=== PATIENT | female | born 1985 | race Caucasian/White ===

== ENCOUNTER 2017-02-25 18:58 | Emergency (ER) | payer MEDICAID ==
[~2017-02-25] VITALS: Ht 147.3 cm; Wt 56.7 kg
[2017-02-25 19:00] VITALS: BP_SYST 155
[2017-02-25] MEDS ORDERED: NACL 0.9% 1,000 ML IV ONE (19:33)
[2017-02-25 19:56] LABS: BASOPHILS % (AUTO) 0.4 % (0.0-2.0); EOSINOPHILS # (AUTO) 0.2 K/uL (0.0-0.4); EOSINOPHILS % (AUTO) 3.3 % (0.0-4.0); LYMPHOCYTES # (AUTO) 1.8 K/uL (1.0-5.5); LYMPHOCYTES % (AUTO) 37.1 % (20.5-51.5); MEAN CORPUSCULAR HEMOGLOBIN 28 pg (27-31); MEAN CORPUSCULAR HGB CONC 33 % (32-36); MEAN CORPUSCULAR VOLUME 84 fL (79.0-98.0); MONOCYTES # (AUTO) 0.4 K/uL (0.0-1.0); MONOCYTES % (AUTO) 7.9 % (1.7-9.3); NEUTROPHILS # (AUTO) 2.5 K/uL (1.8-7.7); NEUTROPHILS % (AUTO) 51.3 % (40.0-70.0); PLATELET COUNT (AUTO) 223 K/uL (130-430); RED BLOOD CELL COUNT(AUTO) 4.27 MIL/uL (4.2-6.2); RED CELL DISTRIBUTION WIDTH 12.3 % (9.0-15.0); WHITE BLOOD COUNT (AUTO) 4.9 K/uL (4.8-10.8)
[2017-02-25 20:26] LABS: ANION GAP 6 (5-15); CALCIUM 9.1 mg/dL (8.4-11.0); CHLORIDE 102 mmol/L (98-107); CREATININE 0.96 mg/dL (0.55-1.30); GLUCOSE 267 mg/dL (70-99); POTASSIUM 4.2 mmol/L (3.5-5.1); SODIUM SERUM 136 mmol/L (136-145); UREA NITROGEN, BLOOD 20 mg/dL (8-21)
[2017-02-25 20:28] LABS: GFR AFRICAN AMERICAN 87 mL/min (>90)
[2017-02-25 20:30] LABS: ALANINE AMINOTRANSFERASE 15 U/L (12-78); ALBUMIN 3.8 g/dL (3.4-4.8); ASPARTATE AMINOTRANSFERASE 14 U/L (10-37); SALICYLATE 5 mg/dL (3-30); TOTAL BILIRUBIN 0.2 mg/dL (0.0-1.0); TOTAL PROTEIN, SERUM 7.3 g/dL (6.4-8.3)
[2017-02-25 20:33] LABS: ALCOHOL, BLOOD < 3 mg/dL (<10)
[2017-02-25 20:51] VITALS: BP_SYST 155
[2017-02-25 20:53] LABS: ACETAMINOPHEN < 1 ug/mL (1-30)
== END 2017-02-25 20:51 | disposition home or self-care (01) ==
LOC: SED 18:58
DX: T40.2X5A Adverse effect of other opioids, initial encounter (principal); T43.3X5A Adverse effect of phenothiazine antipsychotics and neuroleptics, initial encounter; Y92.89 Other specified places as the place of occurrence of the external cause
CPT/HCPCS: 36415; 80053; 85025; 93005; 99285; G0480; G0481; G0482

== ENCOUNTER 2020-08-06 20:59 | Inpatient (IN) | payer MEDICAID, SELFPAY ==
[~2020-08-06] VITALS: Ht 149.9 cm; Wt 49.9 kg
[~2020-08-06 20:59] MED LIST: GLU500 PO; INSU100V9 SQ; SODI1POW PO
[2020-08-06 21:09] VITALS: BP_SYST 113
--- NOTE | 2020-08-06 21:09 | NUR ---
Placed in room 6 . Placed on hide mill worker, blood pressure machine and pulse oximeter. To gown for exam. Side rails up. Report given to CAMELIA STRAUSS.
--- NOTE | 2020-08-06 21:27 | NUR ---
TIMOTEO Tinoco at bedside examining patient.
[2020-08-06] MEDS ORDERED: NACL 0.9% 1,000 ML IV ONE ×3 (21:30→23:15)
[2020-08-06] MEDS ORDERED: ONDANSETRON HCL 4 MG/2 ML VIAL IVP ONE (21:30)
[2020-08-06] MEDS ORDERED: HALOPERIDOL LACTATE 5 MG/ML VIAL IVP ONE (21:30)
--- NOTE | 2020-08-06 21:30 | NUR ---
pt BIB BLS from home a&o x3 c/o of high blood sugar. family called 911 while patient was at home because she was acting weird and her BS was 433. pt arrived agitated with kussmal respirations. pt states she is type 1 diabetes, usually takes medication for it, but has not for the past day. pt reports she uses meth but did not today. will continue to monitor.
--- NOTE | 2020-08-06 21:44 | NUR ---
# 20 gauge angiocath placed to LT wrist Use of asceptic technique. Opsite placed over site. Blood return noted. Blood for lab drawn from site. Flushed with 10 cc of normal saline. No evidence of infiltration noted. Patient tolerated well.
[2020-08-06 21:54] LABS: BASOPHILS # (AUTO) 0.2 K/uL (0.0-0.2); BASOPHILS % (AUTO) 1.3 % (0.0-2.0); EOSINOPHILS % (AUTO) 0.1 % (0.0-4.0); HEMOGLOBIN 12.4 g/dL (12.0-16.0); LYMPHOCYTES # (AUTO) 2.7 K/uL (1.0-5.5); LYMPHOCYTES % (AUTO) 20.1 % (20.5-51.5); MEAN CORPUSCULAR HEMOGLOBIN 30 pg (27-31); MEAN CORPUSCULAR HGB CONC 24 % (32-36); MEAN CORPUSCULAR VOLUME 122 fL (79.0-98.0); MONOCYTES # (AUTO) 0.8 K/uL (0.0-1.0); MONOCYTES % (AUTO) 5.7 % (1.7-9.3); NEUTROPHILS # (AUTO) 9.7 K/uL (1.8-7.7); NEUTROPHILS % (AUTO) 72.8 % (40.0-70.0); PLATELET COUNT (AUTO) 364 K/uL (130-430); RED BLOOD CELL COUNT(AUTO) 4.18 MIL/uL (4.2-6.2); WHITE BLOOD COUNT (AUTO) 13.4 K/uL (4.8-10.8)
[2020-08-06] MEDS ORDERED: INSULIN REGULAR, HUMAN 100 UNITS in NS 99 ML IV PRN ×2 (22:00)
[2020-08-06] MEDS ORDERED: DEXTROSE 50% JECT 50 ML DISP.SYRIN IVP PRN ×2 (22:00→23:15)
[2020-08-06] MEDS ORDERED: KCL 20 mEq in NS 1000 mL 1,000 ML IV SCH (22:00)
--- NOTE | 2020-08-06 22:00 | NUR ---
covid and MRSA swabs collected and sent to lab.
--- NOTE | 2020-08-06 22:05 | NUR ---
# 16 FR Casanova catheter with use of sterile technique. Immediate return of 750 cc clear yellow urine noted. Bedside drainage bag placed below level of bladder. Urine sample collected and sent to lab. Pt tolerated procedure well. Patient unable to toilet self.
[2020-08-06 22:09] LABS: CALCIUM 8.9 mg/dL (8.4-11.0); CREATININE 1.95 mg/dL (0.55-1.30); UREA NITROGEN, BLOOD 43 mg/dL (8-21)
--- NOTE | 2020-08-06 22:11 | NUR ---
Patient thrashing side to side in bed agitated unable to follow instructions for safety. MD notified. Patient put in bilateral soft restraints to arms and legs. Cap refill < 3 seconds. Skin pink and warm.
--- NOTE | 2020-08-06 22:19 | NUR ---
radiology at bedside for chest xray.
[2020-08-06 22:22] LABS: ALANINE AMINOTRANSFERASE 73 U/L (12-78); ALBUMIN 3.8 g/dL (3.4-4.8); ASPARTATE AMINOTRANSFERASE 41 U/L (10-37); LIPASE 174 U/L (73-393); THYROID STIMULATING HORMONE 0.77 uIu/mL (0.36-3.74); TOTAL BILIRUBIN 0.5 mg/dL (0.0-1.0)
--- NOTE | 2020-08-06 22:25 | NUR ---
Dr. Pimentel at bedside assessing patient and speaking with Dr. Tinoco.
--- NOTE | 2020-08-06 22:30 | NUR ---
insulin drip started at 5ml/hr to right wrist. Glucose registered HH on accucheck.
--- NOTE | 2020-08-06 22:36 | NUR ---
called and spoke to Kelvin, echo vasc tech for ICU to request ICU bed. he will call back when nurse has arrived.
--- NOTE | 2020-08-06 22:37 | NUR ---
lab at bedside drawing blood.
[2020-08-06] MEDS ORDERED: INSULIN REGULAR, HUMAN 10 UNITS/0.1 ML INJ ONE (22:38)
[2020-08-06] MEDS ORDERED: KCL 20 mEq in NS 1000 mL 1,000 ML IV ONE (22:44)
--- NOTE | 2020-08-06 22:47 | NUR ---
unable to obtain patients list of home medications.
--- NOTE | 2020-08-06 22:47 | NUR ---
Patient's code status is full code paperwork completed and placed in chart.
[2020-08-06 22:52] LABS: BILIRUBIN,URINE NEGATIVE (NEGATIVE); CLARITY/URINE CLEAR (CLEAR); COLOR,URINE YELLOW (YELLOW); GLUCOSE,URINE 3+ (NEGATIVE); KETONES,URINE 2+ (NEGATIVE); LEUKOCYTE ESTERASE ,URINE NEGATIVE (NEGATIVE); NITRITE, URINE NEGATIVE (NEGATIVE); PROTEIN URINE NEGATIVE (NEGATIVE); UROBILINOGEN,URINE 0.2 (0.2-1.0)
[2020-08-06 22:57] LABS: BLOOD, URINE TRACE (NEGATIVE)
[2020-08-06 23:06] LABS: BACTERIA,URINE FEW /HPF (None Seen); WBC,URINE 0-3 /HPF (0-3)
[2020-08-06 23:07] LABS: BARBITURATE, URINE NEGATIVE (NEG <=200); BENZODIAZEPINE, URINE NEGATIVE (NEG <=150); CANNABINOID, URINE NEGATIVE (NEG <=50); COCAINE, URINE NEGATIVE (NEG <=150); METHAMPHETAMINES SCREEN,URINE POSITIVE (NEG <=500); OPIATE, URINE NEGATIVE (NEG <=100); PHENCYCLIDINE SCREEN,URINE NEGATIVE (NEG <=25); UR TRICYCLIC ANTIDEPRESSANTS NEGATIVE (NEG <=300); URINE AMPHETAMINE POSITIVE (NEG <=500); URINE METHADONE NEGATIVE (NEG <=200); URINE OXYCODONE SCREEN NEGATIVE (NEG <=100); URINE PROPOXYPHENE SCREEN NEGATIVE (NEG <=300)
[2020-08-06] MEDS ORDERED: DIPHENHYDRAMINE INJ 50 MG/ML VIAL IVP ONE (23:15)
[2020-08-06 23:37] LABS: PHOSPHORUS 10.7 mg/dL (2.7-4.5)
--- NOTE | 2020-08-06 23:41 | NUR ---
ACCUCHECK FOR BLOOD SUGAR - REGISTERING 'HI'
[2020-08-06 23:58] LABS: GFR AFRICAN AMERICAN 37 mL/min (>90)
[2020-08-06 23:59] LABS: ALCOHOL, BLOOD < 3 mg/dL (<10); HCG,QUANTITATIVE 1 mIU/ML (0-6)
--- NOTE | 2020-08-06 23:59 | NUR ---
CRITICAL RESULTS NA 114 K 6.4 CL 79 CO2 6 GLUCOSE 195 VIA DILUTION 10X MD CRUMP NOTIFIED. POTASSIUM 20 MEQ STOPPED AT THIS TIME.
[2020-08-07] VITALS (19 sets, daily range): BP systolic 95–129
[2020-08-07] LABS: CHLORIDE 79 mmol/L (98-107); POTASSIUM 6.4 mmol/L (3.5-5.1); SODIUM SERUM 114 mmol/L (136-145)
[2020-08-07 00:02] LABS: ACETAMINOPHEN < 1 ug/mL (1-30); ANION GAP 29 (5-15); GLUCOSE 195 mg/dL (70-99); INR 0.9 (0.8-1.2)
[2020-08-07 00:17] LABS: ACETONE, SERUM LARGE (NEGATIVE)
--- NOTE | 2020-08-07 00:18 | NUR ---
Patient transported to radiology via GURNEY, accompanied by KAROL RN.
--- NOTE | 2020-08-07 00:32 | NUR ---
PATIENT RETURNED FROM RADIOLOGY IN STABLE CONDITION.
--- NOTE | 2020-08-07 00:35 | NUR ---
APatient will be admitted to [facility]. Admitted to ICU unit. Will go to room 4. Belongings list completed. Complete and up to date summary report printed. SBAR report to be given at bedside with opportunity for questions.
--- NOTE | 2020-08-07 00:47 | NUR ---
ACCUCHECK FOR BLOOD SUGAR - REGISTERING 'HI'. AWARE.
--- NOTE | 2020-08-07 00:51 | NUR ---
Transfer to ICU via ACLS protocol. Licensed nurse present. IV present no signs or symptoms of infiltration.
--- NOTE | 2020-08-07 01:18 | NUR ---
ICU Admission: Transfer to ICU via ACLS protocol from ED RN, patient rc;vd on [facility] in no acute distress and or discomfort. Patient not responsive, sedated unable to asses orientation. Sinus tach on monitor, radial and pedal pulses palpable, Equal chest rise and fall, no respiratory distress. Abd soft round non- distended, hopper catheter in place draining below the level of the bladder, skin cool, pink, moist and intact.
--- NOTE | 2020-08-07 01:36 | NUR ---
PAGED FOR ORDERS DIALED: [phone] SPOKE TO: YA
--- NOTE | 2020-08-07 01:38 | NUR ---
MD ronquillo: Herman Pimentel for Insulin Drip Clarification
[2020-08-07] MEDS ORDERED: cefTRIAXone 1 GM IVPB PREMIX 50 ML IV ONE (01:45)
[2020-08-07] MEDS ORDERED: NACL 0.9% 1,000 ML IV ONE ×2 (02:00)
--- NOTE | 2020-08-07 02:07 | NUR ---
MD: Dr. Pimentel at bedside, MD ordered STAT labs for accurate glucose reading, per MD continue Insulin at 5 units/hr.
--- NOTE | 2020-08-07 02:09 | NUR ---
Neuro: Patient opened eyes with tactile and verbal stimulation, able to answer to person, place, time and events leading to hospitalization. Patient denies pain and or discomfort.
--- NOTE | 2020-08-07 02:30 | NUR ---
CHG: Patient refused CHG bath
--- NOTE | 2020-08-07 02:51 | NUR ---
Belongings: Belongings list completed and documented, items at bedside.
--- NOTE | 2020-08-07 02:52 | NUR ---
Glucose: Glucometer reading >600, MD aware continue with current treatment plan.
[2020-08-07 03:09] LABS: CALCIUM 7.6 mg/dL (8.4-11.0); CREATININE 1.89 mg/dL (0.55-1.30); POTASSIUM 4.8 mmol/L (3.5-5.1)
--- NOTE | 2020-08-07 03:37 | NUR ---
Critical Labs: paged for critical lab values, Carbon Dioxide 5, Glucose 956, pending return call.
--- NOTE | 2020-08-07 03:39 | NUR ---
PAGED FOR ORDERS DIALED: [phone] SPOKE TO: YA
[2020-08-07] MEDS ORDERED: SODIUM BICARBONATE 8.4% JECT 100 MEQ in 0.45% NACL 1,000 ML IVP SCH (03:45)
--- NOTE | 2020-08-07 03:46 | NUR ---
BENITA HYDE RN INCREASE INSULIN DRIP TO 8 UNITS/HR.
--- NOTE | 2020-08-07 03:46 | NUR ---
; Dr. Pimentel returned phone call, new orders rc'vd. Increase Insulin to 8 units per hour, 2 Amps Bi-Carb, BMP / CPK labs to be drawn at 0500, 0900, notify MD of results, orders transcribed and carried out, charge aware and verified Insulin increase.
--- NOTE | 2020-08-07 04:30 | NUR ---
RN Rounds: Patient repositioned for comfort, no acute distress and or discomfort noted, patient denies pain, Bed in lowest locked position with call light in reach, all needs met at this time, safety precautions in place.
[2020-08-07] MEDS: NACL 0.9% 1,000 ML IV SCH ×2 (05:07→05:24)
[2020-08-07] MEDS ORDERED: SODIUM BICARBONATE 8.4% JECT 50 MEQ/50 ML SYRINGE ONE (05:10)
--- NOTE | 2020-08-07 05:15 | NUR ---
LABS: sound technician at bedside drawing 0500 blood draw, pending results at this time. Will notify MD of results when available.
[2020-08-07] MEDS ORDERED: SODIUM BICARBONATE 8.4% JECT 50 MEQ/50 ML SYRINGE IVP ONE (05:30)
[2020-08-07 05:46] LABS: BASOPHILS # (AUTO) 0.1 K/uL (0.0-0.2); BASOPHILS % (AUTO) 0.7 % (0.0-2.0); HEMATOCRIT 28.2 % (36-48); HEMOGLOBIN 9.2 g/dL (12.0-16.0); LYMPHOCYTES # (AUTO) 2.3 K/uL (1.0-5.5); LYMPHOCYTES % (AUTO) 17.2 % (20.5-51.5); MEAN CORPUSCULAR HEMOGLOBIN 30 pg (27-31); MEAN CORPUSCULAR HGB CONC 33 % (32-36); MEAN CORPUSCULAR VOLUME 91 fL (79.0-98.0); MONOCYTES # (AUTO) 0.7 K/uL (0.0-1.0); MONOCYTES % (AUTO) 5.2 % (1.7-9.3); NEUTROPHILS # (AUTO) 10.5 K/uL (1.8-7.7); NEUTROPHILS % (AUTO) 76.9 % (40.0-70.0); PLATELET COUNT (AUTO) 283 K/uL (130-430); RED BLOOD CELL COUNT(AUTO) 3.11 MIL/uL (4.2-6.2); RED CELL DISTRIBUTION WIDTH 15.3 % (9.0-15.0); WHITE BLOOD COUNT (AUTO) 13.7 K/uL (4.8-10.8)
[2020-08-07 05:54] LABS: ANION GAP 22 (5-15); CHLORIDE 109 mmol/L (98-107); CREATININE 1.54 mg/dL (0.55-1.30); GLUCOSE 314 mg/dL (70-99); POTASSIUM 3.4 mmol/L (3.5-5.1); SODIUM SERUM 148 mmol/L (136-145); UREA NITROGEN, BLOOD 31 mg/dL (8-21)
[2020-08-07 05:59] LABS: PHOSPHORUS 3.4 mg/dL (2.7-4.5)
--- NOTE | 2020-08-07 06:01 | NUR ---
PAGED FOR CONSULT ASHLEE NAVARRETE REASON FOR CONSULT: DKA ORDERING PHYSICIAN: DIALED: [phone] SPOKE TO: AUTOMATED EXCHANGE
[2020-08-07 06:02] LABS: CALCIUM 6.9 mg/dL (8.4-11.0); GFR AFRICAN AMERICAN 49 mL/min (>90)
--- NOTE | 2020-08-07 06:07 | NUR ---
Ativan: Patient yelling, cursing at staff, kicking legs, flailing arms up and down, PRN Ativan given IVP for agitation, charge aware.
[2020-08-07 06:09] LABS: ACETONE, SERUM MODERATE (NEGATIVE)
[2020-08-07] MEDS: LORazepam 2 MG/ML VIAL IVP PRN (06:09)
--- NOTE | 2020-08-07 06:20 | NUR ---
Hopper Catheter: Patient tore Hopper catheter out with balloon inflated, unable to assess for trauma as patient is flailing legs and kicking. Charge aware, MD aware, waiting for patient to calm down to assess site and reinsert hopper catheter.
--- NOTE | 2020-08-07 06:32 | NUR ---
BENITA HYDE RN DECREASE INSULIN DRIP TO 2 UNITS/HR.
--- NOTE | 2020-08-07 06:33 | NUR ---
Ca Result: Spoke with Dr. Loren MD aware of Ca result. new orders rc'vd and transcribed.
--- NOTE | 2020-08-07 06:43 | NUR ---
Combative: Patient remains combative in bed, kicking and cursing at staff. B/L soft wrist restraints remain in place.
--- NOTE | 2020-08-07 06:57 | NUR ---
Closing Note: Cares endorsed to AM RN, SBAR format report given.
--- NOTE | 2020-08-07 08:00 | NUR ---
NOTES: PATIENT DROWSY,SNORING. AROUSAL WHEN TOUCH AND CALLING NAMES, ORAL CARE PROVIDED. TURN AND REPOSITION. CHECK CIRCULATION ALBA SOFT RESTRAINT. NO INJURY NOTED. ROOM AIR SATURATION 97%. LUNG SOUND CLEAR AND NONLABORED. ABDOMEN SOFT AND NONDISTENDED. IVF AND INSULIN DRIP @ 2ML/HR. CURRENT BS 158. SCD ON FOR DVT PROPHYLAXIS. BED IS LOW AND LOCK POSITION. CALL LIGHT WITHIN REACH. WILL MONITOR.
[2020-08-07] MEDS: LR 1,000 ML IV SCH ×4 (08:04→15:02)
--- NOTE | 2020-08-07 08:14 | NUR ---
Nutrition Update Haider scale 12 noted. Pt admitted for Diabetic Ketoacidosis Diet: [facility] Diet BMI: 23.8 kg/m2 RD to follow per nutrition care standards.
--- NOTE | 2020-08-07 09:00 | NUR ---
BLOOD SUGAR 133.
--- NOTE | 2020-08-07 11:30 | NUR ---
BLOOD SUGAR 321. RESTART INSULIN DRIP AT 2 UNITS/HR. MD BLOOD INFORMED ABOUT THE RESULT. NEW ORDER RECEIVED TO INCREASE INSULIN DRIP TO 4 UNITS/HR AND STAT BLOOD DRAW. NOTED AND CARRIED OUT.
--- NOTE | 2020-08-07 12:10 | NUR ---
Wound Evaluation: Wound Consult ordered for Low Haider Score. Patient evaluated for a low Haider score of 12. Patient was awake, confused and received in a [place] Bed with an IsoFlex ROBBY mattress. Patient needs to be turned in bed. Recommend: Reposition patient every 2 hours with pillow support. Elevate, off-load and float bilateral heels with pillows. Offload pressure areas with pillows for pressure re-distribution. Perform skin care and monitor skin integrity Q shift. Use moisture barrier cream on moisture susceptible areas QID and PRN for soiling. Initiate low air-loss therapy.
[2020-08-07] MEDS ORDERED: INSULIN REGULAR, HUMAN 100 UNITS in NS 99 ML IV PRN ×2 (12:15)
[2020-08-07] MEDS ORDERED: COMMUNICATION ORDER XX ONE (12:15)
--- NOTE | 2020-08-07 12:30 | NUR ---
BLOOD SUGAR 266, MD BLOOD IS HERE. MADE AWARE ABOUT THE RESULT OF BLOOD DRAW. STATED WILL PLACE ORDER.
[2020-08-07 12:45] LABS: ANION GAP 17 (5-15); CALCIUM 7.3 mg/dL (8.4-11.0); CHLORIDE 108 mmol/L (98-107); CREATININE 1.36 mg/dL (0.55-1.30); GLUCOSE 280 mg/dL (70-99); SODIUM SERUM 143 mmol/L (136-145); UREA NITROGEN, BLOOD 28 mg/dL (8-21)
[2020-08-07 12:59] LABS: GFR AFRICAN AMERICAN 57 mL/min (>90)
[2020-08-07 13:05] LABS: ACETONE, SERUM SMALL (NEGATIVE)
[2020-08-07] MEDS ORDERED: INSULIN NPH 100 UNITS/ML 10 ML VIAL SUBCUT SCH ×2 (13:30→17:00)
[2020-08-07] MEDS ORDERED: DEXTROSE 50% JECT 50 ML DISP.SYRIN IVP PRN (13:30)
--- NOTE | 2020-08-07 13:45 | NUR ---
Called Dr. Dunbar with a consult,spoke with Donna from the exchange
[2020-08-07] MEDS ORDERED: INSULIN NPH 100 UNITS/ML 10 ML VIAL SUBCUT ONE (14:00)
--- NOTE | 2020-08-07 15:00 | NUR ---
BLOOD SUGAR 112, NPH 10 UNITS SCHEDULED ADMINISTERED. PATIENT RESTING, SNORING, 2 LITERS NASAL CANNULA IN PLACED SATURATION 99%. ORAL SUCTION AND CARE PROVIDED. KEEP HOB ELEVATED TO PREVENT ASPIRATION, WEAK COUGH NOTED.
--- NOTE | 2020-08-07 16:30 | NUR ---
bladder scanner done. 625ml of urine noted. will informed .
--- NOTE | 2020-08-07 17:44 | NUR ---
notes: in and out straight catheter aseptic technique performed. 1100ml of yellow urine output noted.
[2020-08-07 18:29] LABS: CALCIUM 7.6 mg/dL (8.4-11.0); CREATININE 1.14 mg/dL (0.55-1.30); POTASSIUM 3.9 mmol/L (3.5-5.1)
--- NOTE | 2020-08-07 19:15 | NUR ---
Opening note: Report received from day RN via SBAR format.
[2020-08-07] MEDS ORDERED: cefTRIAXone 1 GM IVPB PREMIX 50 ML IV SCH ×2 (21:00)
--- NOTE | 2020-08-08 05:29 | NUR ---
IRRIGATION SYSTEM INSTALLER DOWN: PAPER CHARTING COMPLETED AND PLACED INTO CHART
[2020-08-08] MEDS: INSULIN REGULAR, HUMAN 100 UNITS/ML, 10 ML VIAL (humuLIN R) SUBCUT PRN ×2 (06:28→20:13)
--- NOTE | 2020-08-08 06:35 | NUR ---
ACCU-CHEK 175, 2 UNITS REGULAR INSULIN SQ GIVEN. SLEPT WELL MOST OF NOC. REMAINS IN GUARDED CONDITION.
[2020-08-08 06:46] LABS: BASOPHILS # (AUTO) 0.1 K/uL (0.0-0.2); BASOPHILS % (AUTO) 0.8 % (0.0-2.0); EOSINOPHILS # (AUTO) 0.2 K/uL (0.0-0.4); EOSINOPHILS % (AUTO) 2.1 % (0.0-4.0); HEMATOCRIT 27.3 % (36-48); LYMPHOCYTES # (AUTO) 3.8 K/uL (1.0-5.5); LYMPHOCYTES % (AUTO) 41.7 % (20.5-51.5); MEAN CORPUSCULAR HEMOGLOBIN 30 pg (27-31); MEAN CORPUSCULAR HGB CONC 33 % (32-36); MEAN CORPUSCULAR VOLUME 89 fL (79.0-98.0); MONOCYTES # (AUTO) 0.8 K/uL (0.0-1.0); NEUTROPHILS # (AUTO) 4.2 K/uL (1.8-7.7); NEUTROPHILS % (AUTO) 46.4 % (40.0-70.0); PLATELET COUNT (AUTO) 244 K/uL (130-430); RED BLOOD CELL COUNT(AUTO) 3.06 MIL/uL (4.2-6.2); WHITE BLOOD COUNT (AUTO) 9.1 K/uL (4.8-10.8)
[2020-08-08] MEDS ORDERED: INSULIN NPH 100 UNITS/ML 10 ML VIAL SUBCUT SCH ×2 (07:00→17:00)
[2020-08-08 07:25] LABS: CALCIUM 7.8 mg/dL (8.4-11.0); CREATININE 0.89 mg/dL (0.55-1.30); PHOSPHORUS 2.3 mg/dL (2.7-4.5); POTASSIUM 3.6 mmol/L (3.5-5.1)
[2020-08-08 07:38] LABS: TOTAL BILIRUBIN 0.2 mg/dL (0.0-1.0)
[2020-08-08 07:49] LABS: TOTAL IRON BIND. CAPACITY 233 ug/dL (250-450)
--- NOTE | 2020-08-08 08:48 | NUR ---
still sleepy, " talk later", vss.
--- NOTE | 2020-08-08 09:16 | NUR ---
awake now, but unable to open eyes 100%, secondary to swelling, both hands with pitting edema noticeably. Per patient's report, " I only assume, dont know for sure, maybe the abx Rocephin I got in ICU last nite, and I am allergic to it" will make sure the attending aware of this problem
[2020-08-08] MEDS ORDERED: DIPHENHYDRAMINE INJ 50 MG/ML VIAL IVP PRN (11:00)
--- NOTE | 2020-08-08 11:39 | NUR ---
CONSULTATION CALLED REASON FOR CONSULTATION:URINARY RETENSION WAS CONSULT CALLED?Y PERSON WHO WAS NOTIFIED:CELINA CONSULTING PHYSICIAN:CHANDAN AKHTAR COLLEGE BASKETBALL COACH SPECIALTY:UROLOGY COLLEGE BASKETBALL COACH PHONE NUMBER:[phone] REQUESTING PHYSICIAN:[facility]
[2020-08-08] MEDS: SOD FERRIC GLUC COMPLEX/SUC 125 MG in NS 100 ML IV SCH (11:54)
[2020-08-08 12:47] VITALS: BP_SYST 128
--- NOTE | 2020-08-08 13:38 | NUR ---
SS notes: CONSULTING TECHNICAL MANAGER was referred by physician for "family issues", and substance use. CONSULTING TECHNICAL MANAGER met with patient at bedside. Pt was asleep but easy to arouse. Pt had her eye closed throughout the encounter. Pt is alert and oriented but irritable. Pt confirmed demographics and wishes her NOK and PTN not to be contacted for any collateral. Pt currently does not have any source of income but has applied for SSI and awaiting for decision. Pt admits history of anxiety and depression but when probed further, pt stated "I don't want to talk about this". Pt denies any inpatient admissions, outpatient mental health and refuses to answer suicidal ideation questions. Pt admits to meth use but refuses to expound on the use, stating "none of your business". Pt denies having any support system, stating "I don't have one". Pt does not have an advanced directive. CONSULTING TECHNICAL MANAGER provided patient with outpatient mental health, substance abuse resource, community clinics and advanced directive. When discharge, patient will be picked up by her friend. SS will remain available when needed. Addendum: 08/08/20 at 1347 by Bill LAMB Pt refused to answer any questions regarding her family.
--- NOTE | 2020-08-08 16:20 | NUR ---
Dietitian Recommendations * Recommend continuing [facility] diet LP, RD Please refer to Nutrition Assessment for details. Addendum: 08/08/20 at [address] Amended: Links added.
[2020-08-08 16:43] VITALS: BP_SYST 130
--- NOTE | 2020-08-08 16:52 | NUR ---
eyes still shut tightly, awake, " felt my blood sugar went down, give me food". snacks offered right away, bs at this point, at 1620 was 154. patient did not want NPH, which is scheduled for her at 1700, 10units. " I know my body, not at this time, please" will continue her bs per her attending ivf discontinued, and Ferric Gluconate initiated. patient did go to bathroom for urination, bladder checked, 425cc retained. Consultation by Blanco Fernandez MD initiated Psychiatrist did see patient, secondary to substance abuse.
[2020-08-08] MEDS ORDERED: NAPH,MB-DB/K PH,MBDB 250 MG TAB PO ONE (19:00)
[2020-08-08 20:00] VITALS: BP_SYST 158
[2020-08-08] MEDS: LORazepam 2 MG/ML VIAL IVP PRN (21:24)
[2020-08-09] VITALS: BP_SYST 134
[2020-08-09] MEDS: INSULIN REGULAR, HUMAN 100 UNITS/ML, 10 ML VIAL (humuLIN R) SUBCUT PRN ×3 (06:07→18:38)
[2020-08-09 06:24] LABS: CALCIUM 7.7 mg/dL (8.4-11.0); CREATININE 0.82 mg/dL (0.55-1.30); PHOSPHORUS 3.1 mg/dL (2.7-4.5); POTASSIUM 4.5 mmol/L (3.5-5.1)
[2020-08-09 06:45] LABS: BASOPHILS % (AUTO) 0.3 % (0.0-2.0); EOSINOPHILS # (AUTO) 0.1 K/uL (0.0-0.4); EOSINOPHILS % (AUTO) 2.8 % (0.0-4.0); HEMATOCRIT 28.4 % (36-48); HEMOGLOBIN 9.4 g/dL (12.0-16.0); LYMPHOCYTES # (AUTO) 2.2 K/uL (1.0-5.5); LYMPHOCYTES % (AUTO) 44.9 % (20.5-51.5); MEAN CORPUSCULAR HEMOGLOBIN 30 pg (27-31); MEAN CORPUSCULAR HGB CONC 33 % (32-36); MEAN CORPUSCULAR VOLUME 90 fL (79.0-98.0); MONOCYTES # (AUTO) 0.4 K/uL (0.0-1.0); MONOCYTES % (AUTO) 8.7 % (1.7-9.3); NEUTROPHILS # (AUTO) 2.1 K/uL (1.8-7.7); NEUTROPHILS % (AUTO) 43.3 % (40.0-70.0); PLATELET COUNT (AUTO) 211 K/uL (130-430); RED BLOOD CELL COUNT(AUTO) 3.17 MIL/uL (4.2-6.2); RED CELL DISTRIBUTION WIDTH 15.9 % (9.0-15.0)
--- NOTE | 2020-08-09 07:49 | NUR ---
Closing note: patient is awake in bed, no acute distress. Tolerating room air. IV site patent and intact. Eyes are still swollen, but improving. Patient stated she can see better now. Patient reports no difficulty urinating. All needs met. Safety, fall precautions observed. Will endorse care to dayshift RN.
[2020-08-09 08:00] LABS: WHITE BLOOD COUNT (AUTO) 4.8 K/uL (4.8-10.8)
[2020-08-09 08:35] VITALS: BP_SYST 122
--- NOTE | 2020-08-09 08:35 | NUR ---
Routine Patient resting quietly in bed with no complaint of pain or discomfort. Patient stable at this time.
--- NOTE | 2020-08-09 10:00 | NUR ---
Routine Patient resting quietly in bed with eyes closed. Patient stable at this time.
[2020-08-09] MEDS: SOD FERRIC GLUC COMPLEX/SUC 125 MG in NS 100 ML IV SCH (11:11)
--- NOTE | 2020-08-09 11:12 | NUR ---
Routine Patient resting comfortably in bed with no distress noted. Checked blood sugar: 132 mg/dl - no coverage required. Scheduled IV med given as well. Patient stable.
[2020-08-09 12:44] VITALS: BP_SYST 142
--- NOTE | 2020-08-09 13:35 | NUR ---
Routine Patient resting quietly in bed with Dr. Pimentel at bedside. Patient stable at this time.
[2020-08-09] MEDS ORDERED: PANTOPRAZOLE SODIUM 40 MG TAB PO ONE (13:45)
[2020-08-09] MEDS ORDERED: MULTIVITAMINS TAB 1 TABLET PO ONE (13:45)
[2020-08-09] MEDS ORDERED: LORazepam 1 MG TABLET PO PRN (13:45)
[2020-08-09] MEDS ORDERED: Multivitamins Tab PO (14:11)
[2020-08-09] MEDS ORDERED: Ferrous Sulfate PO (14:11)
[2020-08-09] MEDS ORDERED: PRO40 PO (14:11)
--- NOTE | 2020-08-09 14:13 | NUR ---
ALEXSANDER notes: LOAN MANAGER met with patient to discuss discharge. Patient stated she is going to be discharged to "a friend' house" in [place] but refused to state the address and name of friend and stated that her friend will also be picking her up. Addendum: 08/09/20 at 1543 by Bill LAMB Discharge order written. Pt agreed to be discharged to her mother's home in [place] ([address], [place] [address]). Pt stated she does not have a good relationship with mother but mother has agreed for her to stay for the night. Pt asked to be discharged after 19:30 (after dinner) and transportation needed. Eva STRAUSS notified.
[2020-08-09] MEDS ORDERED: SSREG SUBCUT (14:15)
--- NOTE | 2020-08-09 14:32 | NUR ---
Routine Scheduled medications given per order. Medication for anxiety given as well. Patient sitting in bed with no distress noted.
--- NOTE | 2020-08-09 14:44 | NUR ---
Checked blood sugar: 597 mg/dl. Rechecked: 574 mg/dl - will cover per sliding scale and call MD. Patient resting quietly in bed with no distress noted at this time. Asymptomatic. Patient stable. Addendum: 08/09/20 at 1450 by Eva Norwood RN Covered per sliding scale; pagejad jackson.
[2020-08-09] MEDS ORDERED: FERROUS SULFATE 325 MG TABLET.DR PO SCH (15:00)
[2020-08-09 15:15] VITALS: BP_SYST 142
--- NOTE | 2020-08-09 15:15 | NUR ---
Routine Received call from Dr. Pimentel. New orders given and carried out; recheck blood sugar in 3hrs, discharge to home if < 300 mg/dl.
[2020-08-09 16:30] VITALS: BP_SYST 132
--- NOTE | 2020-08-09 17:30 | NUR ---
Routine Patient resting quietly in bed with no distress noted; denies any pain. Patient stable.
--- NOTE | 2020-08-09 18:20 | NUR ---
Routine Checked blood sugar: 161 mg/dl - will cover per sliding scale. Patient eating dinner at this time. Stable throughout shift.
--- NOTE | 2020-08-09 18:35 | NUR ---
Routine Covered per sliding scale. Patient stable.
--- NOTE | 2020-08-09 18:55 | NUR ---
Discharge instructions / discharge Both written and verbal discharge instructions and medication reconciliation form given to patient. Exit Care provided. Advised that prescriptions were sent electronically to her pharmacy. Patient verbalized understanding of instructions. Ambulatory with steady gait for discharge to home. Patient in stable condition, ID band removed. IV catheter removed intact with no active bleeding; dressing applied to site. Patient educated on pain management, diabetes and food, and the importance of taking medications as prescribed. All belongings sent with patient. Patient discharged to home in stable condition.
[2020-08-09] MEDS ORDERED: MULTIVITAMINS TAB 1 TABLET PO SCH (21:00)
[2020-08-09] MEDS ORDERED: INSULIN GLARGINE 100 UNITS/ML 10 ML VIAL SUBCUT SCH ×2 (21:00)
[2020-08-10] MEDS ORDERED: PANTOPRAZOLE SODIUM 40 MG TAB PO SCH (09:00)
[2020-08-23] MEDS ORDERED: PANTOPRAZOLE SODIUM 40 MG/VIAL (PROTONIX) ONE (10:15)
[2020-08-23] MEDS ORDERED: MORPHINE 4 MG/ML INJ. SYRINGE ONE ×3 (10:34→18:24)
== END 2020-08-09 18:55 | disposition home or self-care (01) | DRG 420 ==
LOC: SED 20:59 → SIC 22:57 → STU 08-08 05:25
PROVIDERS: ADMIT Internal Medicine; ATTEND Internal Medicine
DX: E10.10 Type 1 diabetes mellitus with ketoacidosis without coma (principal); G93.41 Metabolic encephalopathy; D50.9 Iron deficiency anemia, unspecified; E43 Unspecified severe protein-calorie malnutrition; F15.10 Other stimulant abuse, uncomplicated; Z20.828 Contact with and (suspected) exposure to other viral communicable diseases; E86.0 Dehydration; D64.9 Anemia, unspecified; R33.9 Retention of urine, unspecified; R31.29 Other microscopic hematuria; T78.49XA Other allergy, initial encounter; T50.995A Adverse effect of other drugs, medicaments and biological substances, initial encounter; X58.XXXA Exposure to other specified factors, initial encounter; Z91.19 Patient's noncompliance with other medical treatment and regimen; Z79.4 Long term (current) use of insulin; Z91.14 Patient's other noncompliance with medication regimen; Z68.22 Body mass index [BMI] 22.0-22.9, adult; Z79.899 Other long term (current) drug therapy; Y92.89 Other specified places as the place of occurrence of the external cause; R65.11 Systemic inflammatory response syndrome (SIRS) of non-infectious origin with acute organ dysfunction
CPT/HCPCS: 36415; 36600; 70450-TC; 71045; 76376; 76770; 80048; 80053; 80307; 81000-TC; 82009-TC; 82550-TC; 82803-TC; 82962; 83036; 83540-TC; 83550-TC; 83690-TC; 83735-TC; 84100-TC; 84443-TC; 84484; 84702-TC; 85025; 85610-TC; 85730-TC; 87040-TC; 87081; 93005; 96361; 96374; 96375; 99291; G0378; G0480; G0481; G0482; J0696; J1630; J1815; J2060; J2405; J2916; J3480; J7030; J7120

== ENCOUNTER 2020-08-19 04:46 | Inpatient (IN) | payer MEDICAID, SELFPAY ==
[~2020-08-19] VITALS: Ht 149.9 cm; Wt 51.7 kg
[~2020-08-19 04:46] MED LIST changes: +Ferrous Sulfate PO; -GLU500 PO; +Multivitamins Tab PO; +PRO40 PO; -SODI1POW PO; +SSREG SUBCUT
[2020-08-19 04:50] VITALS: BP_SYST 104
[2020-08-19] MEDS ORDERED: NACL 0.9% 1,000 ML IV ONE ×2 (05:45→06:45)
[2020-08-19] MEDS ORDERED: LR 1,000 ML IV ONE (05:45)
[2020-08-19 05:52] LABS: HEMATOCRIT 43.8 % (36-48); HEMOGLOBIN 11.3 g/dL (12.0-16.0); MEAN CORPUSCULAR HEMOGLOBIN 30 pg (27-31); MEAN CORPUSCULAR HGB CONC 26 % (32-36); MEAN CORPUSCULAR VOLUME 115 fL (79.0-98.0); PLATELET COUNT (AUTO) 507 K/uL (130-430); RED BLOOD CELL COUNT(AUTO) 3.82 MIL/uL (4.2-6.2); RED CELL DISTRIBUTION WIDTH 18.5 % (9.0-15.0)
[2020-08-19 05:57] LABS: WHITE BLOOD COUNT (AUTO) 30.8 K/uL (4.8-10.8)
[2020-08-19 06:02] LABS: ANION GAP 35 (5-15); CALCIUM 9.3 mg/dL (8.4-11.0); CHLORIDE 87 mmol/L (98-107); CREATININE 2.05 mg/dL (0.55-1.30); POTASSIUM 5.4 mmol/L (3.5-5.1); SODIUM SERUM 127 mmol/L (136-145); UREA NITROGEN, BLOOD 34 mg/dL (8-21)
[2020-08-19] MEDS ORDERED: PIPERACILLIN/TAZOBACTAM 3.375 GM/VIAL (ZOSYN) IV ONE (06:09)
[2020-08-19] MEDS ORDERED: VANCOMYCIN HCL 1000 MG/VIAL IV ONE (06:10)
[2020-08-19 06:12] LABS: PROTHROMBIN TIME 9.9 SECS (9.5-12.5)
[2020-08-19 06:14] LABS: ALANINE AMINOTRANSFERASE 45 U/L (12-78); ALBUMIN 3.3 g/dL (3.4-4.8); ASPARTATE AMINOTRANSFERASE 28 U/L (10-37); LACTATE DEHYDROGENASE 172 U/L (81-234); THYROID STIMULATING HORMONE 0.57 uIu/mL (0.36-3.74); TOTAL BILIRUBIN 0.6 mg/dL (0.0-1.0)
[2020-08-19 06:15] LABS: GFR AFRICAN AMERICAN 35 mL/min (>90); HCG,QUANTITATIVE 3 mIU/ML (0-6)
[2020-08-19] MEDS ORDERED: VANCOMYCIN HCL 1,000 MG in NS 250 ML IV ONE (06:15)
[2020-08-19] MEDS ORDERED: PIPERACILLIN/TAZO 3.375 GM in NS 50 ML IV ONE (06:15)
[2020-08-19 06:19] LABS: GLUCOSE 1227 mg/dL (70-99)
[2020-08-19 06:20] LABS: ACETAMINOPHEN < 1 ug/mL (1-30); ALCOHOL, BLOOD < 3 mg/dL (<10)
[2020-08-19 06:28] LABS: ATYPICAL LYMPHOCYTES % 0 % (0-0); BAND % (MANUAL) 8 % (0-6); BASOPHILS % (MANUAL) 0 % (0-2); EOSINOPHILS % (MANUAL) 0 % (0-7); LYMPHOCYTES % (MANUAL) 18 % (20-46); MONOCYTES % (MANUAL) 4 % (0-11)
[2020-08-19] MEDS ORDERED: INSULIN REGULAR, HUMAN 100 UNITS in NS 99 ML IV ONE ×2 (06:30)
[2020-08-19] MEDS ORDERED: NOREPINEPHRINE BITARTRATE 4 MG in NS 246 ML IV ONE (06:45)
[2020-08-19 07:31] LABS: BILIRUBIN,URINE NEGATIVE (NEGATIVE); BLOOD, URINE NEGATIVE (NEGATIVE); CLARITY/URINE CLEAR (CLEAR); COLOR,URINE YELLOW (YELLOW); GLUCOSE,URINE 3+ (NEGATIVE); KETONES,URINE 3+ (NEGATIVE); LEUKOCYTE ESTERASE ,URINE NEGATIVE (NEGATIVE); NITRITE, URINE NEGATIVE (NEGATIVE); PH,URINE 5.5 (5.0-8.0); PROTEIN URINE NEGATIVE (NEGATIVE); UROBILINOGEN,URINE 0.2 (0.2-1.0)
[2020-08-19 07:41] LABS: BARBITURATE, URINE NEGATIVE (NEG <=200); BENZODIAZEPINE, URINE NEGATIVE (NEG <=150); CANNABINOID, URINE NEGATIVE (NEG <=50); COCAINE, URINE NEGATIVE (NEG <=150); METHAMPHETAMINES SCREEN,URINE NEGATIVE (NEG <=500); OPIATE, URINE NEGATIVE (NEG <=100); PHENCYCLIDINE SCREEN,URINE NEGATIVE (NEG <=25); UR TRICYCLIC ANTIDEPRESSANTS NEGATIVE (NEG <=300); URINE AMPHETAMINE NEGATIVE (NEG <=500); URINE METHADONE NEGATIVE (NEG <=200); URINE OXYCODONE SCREEN NEGATIVE (NEG <=100); URINE PROPOXYPHENE SCREEN NEGATIVE (NEG <=300)
[2020-08-19] MEDS ORDERED: SODIUM BICARBONATE 8.4% JECT 50 MEQ/50 ML SYRINGE IV ONE (08:00)
[2020-08-19] MEDS ORDERED: SODIUM BICARBONATE 8.4% JECT 50 MEQ/50 ML SYRINGE ONE ×3 (08:13→14:13)
[2020-08-19] MEDS: NACL 0.9% 1,000 ML IV SCH ×2 (08:19→12:57)
[2020-08-19 08:22] LABS: RBC,URINE 0-3 /HPF (0-3); WBC,URINE 0-3 /HPF (0-3)
[2020-08-19 08:23] LABS: BACTERIA,URINE None Seen /HPF (None Seen); YEAST,URINE None Seen /HPF (None Seen)
[2020-08-19] MEDS ORDERED: PANTOPRAZOLE SODIUM 40 MG/VIAL (PROTONIX) IVP ONE (08:30)
[2020-08-19] MEDS ORDERED: SODIUM BICARBONATE 8.4% JECT 50 MEQ/50 ML SYRINGE IVP ONE (10:00)
[2020-08-19 10:55] LABS: ANION GAP 33 (5-15); CALCIUM 7.6 mg/dL (8.4-11.0); CHLORIDE 106 mmol/L (98-107); CREATININE 2.01 mg/dL (0.55-1.30); POTASSIUM 3.4 mmol/L (3.5-5.1); SODIUM SERUM 144 mmol/L (136-145); UREA NITROGEN, BLOOD 30 mg/dL (8-21)
[2020-08-19 11:40] LABS: GFR AFRICAN AMERICAN 36 mL/min (>90)
[2020-08-19 11:43] LABS: GLUCOSE 587 mg/dL (70-99)
[2020-08-19] MEDS ORDERED: PIPERACILLIN/TAZOBACTAM 2.25 GM VIAL IV ONE (12:59)
[2020-08-19] MEDS: PIPERACILLIN/TAZO 2.25G/DEX-IS 50 ML IV SCH ×2 (13:01→18:13)
[2020-08-19] MEDS ORDERED: MORPHINE 2 MG/ML INJ. SYRINGE IVP PRN (13:30)
[2020-08-19] MEDS ORDERED: ACETAMINOPHEN 325 MG TABLET PO PRN (13:30)
[2020-08-19] MEDS ORDERED: NALOXONE HCL 0.4 MG/ML AMP (NARCAN) IVP PRN (13:30)
[2020-08-19] MEDS ORDERED: SODIUM BICARBONATE 8.4% VIAL 50 MEQ/50 ML VIAL INJ ONE (13:30)
[2020-08-19] MEDS: LR 1,000 ML IV SCH ×3 (14:20→18:12)
[2020-08-19 14:29] LABS: C-REACTIVE PROTEIN QUANT 13.8 mg/dL (0-0.5)
[2020-08-19 14:34] LABS: ACETONE, SERUM POSITIVE (NEGATIVE)
[2020-08-19 16:24] LABS: HEMATOCRIT 29.9 % (36-48); MEAN CORPUSCULAR HEMOGLOBIN 30 pg (27-31); MEAN CORPUSCULAR HGB CONC 33 % (32-36); MEAN CORPUSCULAR VOLUME 90 fL (79.0-98.0); PLATELET COUNT (AUTO) 340 K/uL (130-430); RED BLOOD CELL COUNT(AUTO) 3.31 MIL/uL (4.2-6.2); RED CELL DISTRIBUTION WIDTH 16.3 % (9.0-15.0); WHITE BLOOD COUNT (AUTO) 17.9 K/uL (4.8-10.8)
[2020-08-19 16:53] LABS: ATYPICAL LYMPHOCYTES % 0 % (0-0); BAND % (MANUAL) 10 % (0-6); BASOPHILS % (MANUAL) 0 % (0-2); EOSINOPHILS % (MANUAL) 0 % (0-7); LYMPHOCYTES % (MANUAL) 14 % (20-46); MONOCYTES % (MANUAL) 6 % (0-11)
[2020-08-19 17:01] LABS: ANION GAP 15 (5-15); CALCIUM 7.4 mg/dL (8.4-11.0); CHLORIDE 107 mmol/L (98-107); CREATININE 1.37 mg/dL (0.55-1.30); GLUCOSE 115 mg/dL (70-99); POTASSIUM 3.2 mmol/L (3.5-5.1); SODIUM SERUM 142 mmol/L (136-145); UREA NITROGEN, BLOOD 21 mg/dL (8-21)
[2020-08-19 17:07] LABS: ACETONE, SERUM TRACE (NEGATIVE)
[2020-08-19 17:08] LABS: GFR AFRICAN AMERICAN 56 mL/min (>90)
[2020-08-19] MEDS ORDERED: POTASSIUM CHLORIDE 40 MEQ in D5W 250 ML IV ONE (17:15)
[2020-08-19] MEDS: INSULIN REGULAR, HUMAN 100 UNITS/ML, 10 ML VIAL (humuLIN R) SUBCUT PRN ×2 (18:07→22:18)
[2020-08-19 18:26] VITALS: BP_SYST 120
[2020-08-19 19:20] VITALS: BP_SYST 100
[2020-08-19] MEDS: PANTOPRAZOLE SODIUM 40 MG/VIAL (PROTONIX) IVP SCH (22:38)
[2020-08-19] MEDS: LINEZOLID 300 ML IV SCH (22:38)
[2020-08-20] VITALS: BP_SYST 139
[2020-08-20] MEDS: PIPERACILLIN/TAZO 2.25G/DEX-IS 50 ML IV SCH ×4 (00:39→17:16)
[2020-08-20] MEDS: LR 1,000 ML IV SCH ×3 (00:40→10:30)
[2020-08-20] MEDS: INSULIN REGULAR, HUMAN 100 UNITS/ML, 10 ML VIAL (humuLIN R) SUBCUT PRN ×5 (01:29→20:49)
[2020-08-20] MEDS: DEXTROSE 50% JECT 50 ML DISP.SYRIN IVP PRN (05:16)
[2020-08-20 06:34] LABS: BASOPHILS # (AUTO) 0.1 K/uL (0.0-0.2); BASOPHILS % (AUTO) 0.4 % (0.0-2.0); EOSINOPHILS % (AUTO) 0.2 % (0.0-4.0); HEMATOCRIT 26.8 % (36-48); LYMPHOCYTES # (AUTO) 2.8 K/uL (1.0-5.5); MEAN CORPUSCULAR HEMOGLOBIN 30 pg (27-31); MEAN CORPUSCULAR HGB CONC 33 % (32-36); MEAN CORPUSCULAR VOLUME 89 fL (79.0-98.0); MONOCYTES # (AUTO) 1.1 K/uL (0.0-1.0); MONOCYTES % (AUTO) 8.1 % (1.7-9.3); NEUTROPHILS % (AUTO) 71.3 % (40.0-70.0); PLATELET COUNT (AUTO) 306 K/uL (130-430); RED CELL DISTRIBUTION WIDTH 16.8 % (9.0-15.0)
[2020-08-20 07:12] LABS: ALBUMIN 2.1 g/dL (3.4-4.8); CALCIUM 7.8 mg/dL (8.4-11.0); CREATININE 1.09 mg/dL (0.55-1.30); PHOSPHORUS 1.5 mg/dL (2.7-4.5); POTASSIUM 3.4 mmol/L (3.5-5.1); TOTAL BILIRUBIN 0.3 mg/dL (0.0-1.0)
[2020-08-20 08:00] VITALS: BP_SYST 107
[2020-08-20] MEDS: LINEZOLID 300 ML IV SCH ×2 (08:11→20:38)
[2020-08-20] MEDS: PANTOPRAZOLE SODIUM 40 MG/VIAL (PROTONIX) IVP SCH ×2 (08:11→20:37)
[2020-08-20] MEDS ORDERED: K PHOS 30 MM in NS 250 ML IV ONE (11:15)
[2020-08-20 11:23] VITALS: BP_SYST 131
[2020-08-20] MEDS ORDERED: MULTIVITAMINS TAB 1 TABLET PO ONE (12:30)
[2020-08-20] MEDS: SOD FERRIC GLUC COMPLEX/SUC 125 MG in NS 100 ML IV SCH (13:28)
[2020-08-20] MEDS: ONDANSETRON HCL 4 MG/2 ML VIAL IVP PRN ×2 (14:13→20:48)
[2020-08-20 15:23] VITALS: BP_SYST 111
[2020-08-20 20:34] VITALS: BP_SYST 132
[2020-08-20] MEDS: MULTIVITAMINS TAB 1 TABLET PO SCH (20:37)
[2020-08-20] MEDS: MORPHINE 4 MG/ML INJ. SYRINGE IVP PRN (20:50)
[2020-08-21] MEDS: PIPERACILLIN/TAZO 2.25G/DEX-IS 50 ML IV SCH ×2 (00:20→05:13)
[2020-08-21 00:24] VITALS: BP_SYST 123
[2020-08-21] MEDS: MORPHINE 4 MG/ML INJ. SYRINGE IVP PRN ×5 (00:28→22:26)
[2020-08-21] MEDS: LR 1,000 ML IV SCH ×2 (02:11→16:56)
[2020-08-21] MEDS: INSULIN REGULAR, HUMAN 100 UNITS/ML, 10 ML VIAL (humuLIN R) SUBCUT PRN ×3 (05:33→22:46)
[2020-08-21] MEDS: ONDANSETRON HCL 4 MG/2 ML VIAL IVP PRN ×3 (05:34→22:27)
[2020-08-21 06:42] LABS: BASOPHILS % (AUTO) 0.6 % (0.0-2.0); EOSINOPHILS # (AUTO) 0.1 K/uL (0.0-0.4); EOSINOPHILS % (AUTO) 1.5 % (0.0-4.0); HEMATOCRIT 27.3 % (36-48); HEMOGLOBIN 9.1 g/dL (12.0-16.0); MEAN CORPUSCULAR HEMOGLOBIN 30 pg (27-31); MEAN CORPUSCULAR HGB CONC 33 % (32-36); MEAN CORPUSCULAR VOLUME 91 fL (79.0-98.0); MONOCYTES # (AUTO) 0.4 K/uL (0.0-1.0); MONOCYTES % (AUTO) 6.7 % (1.7-9.3); NEUTROPHILS # (AUTO) 3.4 K/uL (1.8-7.7); NEUTROPHILS % (AUTO) 57.2 % (40.0-70.0); PLATELET COUNT (AUTO) 235 K/uL (130-430); RED CELL DISTRIBUTION WIDTH 17.5 % (9.0-15.0)
[2020-08-21 07:15] LABS: CALCIUM 7.8 mg/dL (8.4-11.0); CREATININE 0.86 mg/dL (0.55-1.30); PHOSPHORUS 2.4 mg/dL (2.7-4.5); POTASSIUM 3.9 mmol/L (3.5-5.1)
[2020-08-21 08:56] VITALS: BP_SYST 134
[2020-08-21] MEDS: LINEZOLID 300 ML IV SCH (09:01)
[2020-08-21] MEDS: PANTOPRAZOLE SODIUM 40 MG/VIAL (PROTONIX) IVP SCH ×2 (09:01→22:20)
[2020-08-21] MEDS: MULTIVITAMINS TAB 1 TABLET PO SCH ×2 (09:01→22:20)
[2020-08-21 11:29] VITALS: BP_SYST 114
[2020-08-21] MEDS: SOD FERRIC GLUC COMPLEX/SUC 125 MG in NS 100 ML IV SCH (12:28)
[2020-08-21 15:41] LABS: CORTISOL (SERUM) 61.9 ug/dL (.)
[2020-08-21 15:42] VITALS: BP_SYST 122
[2020-08-21] MEDS: DOXYCYCLINE HYCLATE 100 MG CAPSULE PO SCH (22:20)
[2020-08-21 22:51] VITALS: BP_SYST 126
[2020-08-22] MEDS: INSULIN REGULAR, HUMAN 100 UNITS/ML, 10 ML VIAL (humuLIN R) SUBCUT PRN ×5 (01:25→22:27)
[2020-08-22 01:40] VITALS: BP_SYST 137
[2020-08-22] MEDS: LR 1,000 ML IV SCH ×2 (06:47→21:48)
[2020-08-22 07:03] LABS: BASOPHILS # (AUTO) 0.1 K/uL (0.0-0.2); BASOPHILS % (AUTO) 0.9 % (0.0-2.0); EOSINOPHILS # (AUTO) 0.1 K/uL (0.0-0.4); LYMPHOCYTES # (AUTO) 2.2 K/uL (1.0-5.5); LYMPHOCYTES % (AUTO) 35.8 % (20.5-51.5); MEAN CORPUSCULAR HEMOGLOBIN 30 pg (27-31); MEAN CORPUSCULAR HGB CONC 33 % (32-36); MEAN CORPUSCULAR VOLUME 91 fL (79.0-98.0); MONOCYTES # (AUTO) 0.5 K/uL (0.0-1.0); MONOCYTES % (AUTO) 7.7 % (1.7-9.3); NEUTROPHILS # (AUTO) 3.3 K/uL (1.8-7.7); NEUTROPHILS % (AUTO) 54.6 % (40.0-70.0); PLATELET COUNT (AUTO) 240 K/uL (130-430); RED BLOOD CELL COUNT(AUTO) 2.96 MIL/uL (4.2-6.2); RED CELL DISTRIBUTION WIDTH 16.8 % (9.0-15.0)
[2020-08-22 07:12] LABS: CALCIUM 8.7 mg/dL (8.4-11.0); CREATININE 0.81 mg/dL (0.55-1.30); PHOSPHORUS 2.2 mg/dL (2.7-4.5); POTASSIUM 4.1 mmol/L (3.5-5.1)
[2020-08-22 08:08] VITALS: BP_SYST 134
[2020-08-22] MEDS: DOXYCYCLINE HYCLATE 100 MG CAPSULE PO SCH (08:41)
[2020-08-22] MEDS: MULTIVITAMINS TAB 1 TABLET PO SCH ×2 (08:41→20:08)
[2020-08-22] MEDS: PANTOPRAZOLE SODIUM 40 MG/VIAL (PROTONIX) IVP SCH ×2 (08:41→20:08)
[2020-08-22] MEDS: MORPHINE 4 MG/ML INJ. SYRINGE IVP PRN ×2 (08:42→20:06)
[2020-08-22] MEDS: SOD FERRIC GLUC COMPLEX/SUC 125 MG in NS 100 ML IV SCH (12:09)
[2020-08-22 12:15] VITALS: BP_SYST 124
[2020-08-22] MEDS: DIPHENHYDRAMINE INJ 50 MG/ML VIAL IVP PRN ×2 (13:41→22:15)
[2020-08-22] MEDS ORDERED: PERMETHRIN 5% 60 GM CREAM.GM. TP ONE (14:00)
[2020-08-22] MEDS: FERROUS SULFATE 325 MG TABLET.DR PO SCH ×2 (14:26→20:08)
[2020-08-22 16:16] VITALS: BP_SYST 132
[2020-08-22 19:55] VITALS: BP_SYST 133
[2020-08-22] MEDS ORDERED: LINEZOLID 600 MG TABLET PO SCH (21:00)
[2020-08-22] MEDS: ONDANSETRON HCL 4 MG/2 ML VIAL IVP PRN (22:15)
[2020-08-22] MEDS: AMOXICILLIN 500 MG CAPSULE PO SCH (22:36)
[2020-08-23 00:52] VITALS: BP_SYST 149
[2020-08-23] MEDS: MORPHINE 4 MG/ML INJ. SYRINGE IVP PRN ×6 (02:03→22:55)
[2020-08-23] MEDS: DEXTROSE 50% JECT 50 ML DISP.SYRIN IVP PRN (04:16)
[2020-08-23] MEDS: INSULIN REGULAR, HUMAN 100 UNITS/ML, 10 ML VIAL (humuLIN R) SUBCUT PRN ×3 (05:43→18:38)
[2020-08-23] MEDS: AMOXICILLIN 500 MG CAPSULE PO SCH ×3 (05:44→23:11)
[2020-08-23] MEDS: DIPHENHYDRAMINE INJ 50 MG/ML VIAL IVP PRN ×4 (06:14→20:44)
[2020-08-23 08:18] VITALS: BP_SYST 124
[2020-08-23] MEDS ORDERED: MULTIVITAMINS TAB 1 TABLET PO ONE (09:30)
[2020-08-23] MEDS ORDERED: FERROUS SULFATE 325 MG TABLET.DR PO ONE (09:30)
[2020-08-23] MEDS: PANTOPRAZOLE SODIUM 40 MG/VIAL (PROTONIX) IVP SCH ×2 (10:36→20:44)
[2020-08-23] MEDS: LR 1,000 ML IV SCH (12:06)
[2020-08-23] MEDS: FERROUS SULFATE 325 MG TABLET.DR PO SCH ×2 (14:46→20:44)
[2020-08-23 16:00] VITALS: BP_SYST 139
[2020-08-23 20:40] VITALS: BP_SYST 142
[2020-08-23] MEDS: ONDANSETRON HCL 4 MG/2 ML VIAL IVP PRN (20:44)
[2020-08-23] MEDS: MULTIVITAMINS TAB 1 TABLET PO SCH (20:44)
[2020-08-24] MEDS: INSULIN REGULAR, HUMAN 100 UNITS/ML, 10 ML VIAL (humuLIN R) SUBCUT PRN ×3 (02:14→12:18)
[2020-08-24] MEDS: DIPHENHYDRAMINE INJ 50 MG/ML VIAL IVP PRN (06:15)
[2020-08-24] MEDS: AMOXICILLIN 500 MG CAPSULE PO SCH (06:17)
[2020-08-24 06:35] VITALS: BP_SYST 144
[2020-08-24 07:45] VITALS: BP_SYST 135
[2020-08-24] MEDS: PANTOPRAZOLE SODIUM 40 MG/VIAL (PROTONIX) IVP SCH (08:10)
[2020-08-24] MEDS: MULTIVITAMINS TAB 1 TABLET PO SCH (08:11)
[2020-08-24] MEDS: FERROUS SULFATE 325 MG TABLET.DR PO SCH (08:11)
[2020-08-24] MEDS: MORPHINE 4 MG/ML INJ. SYRINGE IVP PRN ×2 (08:18→12:25)
[2020-08-24] MEDS ORDERED: AMOX500C2 PO ×2 (11:21→11:26)
[2020-08-24] MEDS ORDERED: SSREG SUBCUT (11:24)
[2020-08-24 12:25] VITALS: BP_SYST 130
[2020-08-24 12:37] VITALS: BP_SYST 120
== END 2020-08-24 13:35 | disposition home or self-care (01) | DRG 720 ==
LOC: SED 04:46 → SIC 06:38 → STU 17:45 → SMU 08-21 17:37
PROVIDERS: ADMIT Internal Medicine; ATTEND Internal Medicine
DX: A41.02 Sepsis due to Methicillin resistant Staphylococcus aureus (principal); E43 Unspecified severe protein-calorie malnutrition; G93.41 Metabolic encephalopathy; E10.10 Type 1 diabetes mellitus with ketoacidosis without coma; J69.0 Pneumonitis due to inhalation of food and vomit; E86.0 Dehydration; T36.1X5A Adverse effect of cephalosporins and other beta-lactam antibiotics, initial encounter; R33.9 Retention of urine, unspecified; Z59.0 Homelessness; Z79.4 Long term (current) use of insulin; Y92.89 Other specified places as the place of occurrence of the external cause; Z91.14 Patient's other noncompliance with medication regimen; Z68.23 Body mass index [BMI] 23.0-23.9, adult; Z88.8 Allergy status to other drugs, medicaments and biological substances; Z91.018 Allergy to other foods; Z20.828 Contact with and (suspected) exposure to other viral communicable diseases
CPT/HCPCS: 36415; 36600; 70450-TC; 71045; 76376; 80048; 80053; 80307; 81000-TC; 82009-TC; 82533; 82550-TC; 82728; 82803-TC; 82962; 83605; 83615-TC; 83735-TC; 83880; 84100-TC; 84311; 84439; 84443-TC; 84484; 84702-TC; 85007; 85025; 85027; 85379; 85384-TC; 85610-TC; 85730-TC; 86140; 87040-TC; 87081; 87086; 87210-TC; 93005; 96361; 96365; 99291; C9113; G0378; G0480; G0481; G0482; J1200; J1815; J2020; J2270; J2405; J2543; J2916; J3370; J3480; J7050; J7060